=== PATIENT | male | born 1970 | race Caucasian/White ===

== ENCOUNTER 2022-07-07 06:14 | Day surgery (SDC) | payer BC ==
[2022-07-03 15:31] VITALS: BMI 26.9
[2022-07-07] MEDS ORDERED: Dexamethasone 20 MG/5 ML VIAL ONE (08:31)
[2022-07-07] MEDS ORDERED: PROPOFOL 20 ML ONE ×2 (08:31)
[2022-07-07] MEDS ORDERED: Dexamethasone 4 mg/ml Vial ONE (08:31)
[2022-07-07] MEDS ORDERED: Midazolam HCl 2 mg/2 ml Vial ONE (08:31)
[2022-07-07] MEDS ORDERED: Ondansetron PF 4 MG/2 ML Vial ONE (08:31)
[2022-07-07] MEDS ORDERED: Rocuronium Bromide 10 MG/ML (10ML VIAL) ONE (08:31)
[2022-07-07] MEDS ORDERED: Fentanyl 100 MCG/2 ML VIAL ONE ×2 (08:32→09:51)
[2022-07-07] MEDS ORDERED: oFLOXacin 0.3% Opth 5 ML BOT ONE (08:37)
[2022-07-07] MEDS ORDERED: EPINEPHrine 1 MG/ML AMP ONE (08:37)
[2022-07-07] MEDS ORDERED: Methylene Blue 50 MG/10 ML AMPUL ONE (08:38)
[2022-07-07] MEDS ORDERED: CEFAZOLIN 1 GM VIAL ONE (08:38)
[2022-07-07] MEDS ORDERED: Lidocaine 1% (PF) 30 ML VIAL ONE (09:47)
[2022-07-07] MEDS ORDERED: Mupirocin 2% Ointment 22 GM Tube ONE (10:12)
[2022-07-07] MEDS ORDERED: Meperidine HCl/PF 25 MG/ML VIAL ONE (12:33)
[2022-07-07] MEDS ORDERED: HYDROcodone/Acetaminophen 5/325 mg Tablet ONE (13:08)
== END 2022-07-07 13:40 | disposition home or self-care (01) ==
LOC: CSHSDC 06:14
PROVIDERS: ATTEND Otolaryngology Plastic Surgery within the Head & Neck
PROC: 09U Ear, Nose, Sinus, Supplement (ICD-10-PCS; principal; 2022-07-07)
PROC: 0CBQ0ZZ Excision of Adenoids, Open Approach (ICD-10-PCS; principal; 2022-07-07)
PROC: 0NB50ZZ Excision of Right Temporal Bone, Open Approach (ICD-10-PCS; principal; 2022-07-07)
DX: H71.11 Cholesteatoma of tympanum, right ear (principal); H71.21 Cholesteatoma of mastoid, right ear; J35.2 Hypertrophy of adenoids; L72.0 Epidermal cyst; H69.83 Other specified disorders of Eustachian tube, bilateral; H65.22 Chronic serous otitis media, left ear; H90.71 Mixed conductive and sensorineural hearing loss, unilateral, right ear, with unrestricted hearing on the contralateral side; J30.9 Allergic rhinitis, unspecified; F17.210 Nicotine dependence, cigarettes, uncomplicated; Z88.0 Allergy status to penicillin
CPT/HCPCS: 88304; C1713; C1726; J0171; J0690; J1100; J2001; J2175; J2250; J2405; J2704; J3010; Q9968